=== PATIENT | male | born 1990 | race African-American/Black ===

== ENCOUNTER 2021-11-27 11:53 | Emergency (ER) | payer MEDICAID, OTHER ==
[~2021-11-27] VITALS: Ht 177.8 cm; Wt 79.4 kg
[2021-11-27] MEDS ORDERED: MORPHINE SULFATE 4 MG/ML SYR/VIAL IV ONE (12:15)
[2021-11-27] MEDS ORDERED: SODIUM CHLORIDE 0.9% 1,000 ML IVB ONE (12:15)
[2021-11-27] MEDS ORDERED: PROCHLORPERAZINE EDISYLATE 5 MG/ML 2ML VIAL IV ONE (12:15)
[2021-11-27] MEDS ORDERED: PANTOPRAZOLE 40 MG/10 ML VIAL INJ IV ONE (12:15)
[2021-11-27 13:31] LABS: Basophils # (auto) 0.1 10 ^3/uL (0-0.2); Basophils % (auto) 0.9 % (0.0-2.0); Eosinophils # (auto) 0.1 10 ^3/uL (0-0.8); Eosinophils % (auto) 1.4 % (0.0-7.0); Hematocrit 44.9 % (41.0-53.0); Hemoglobin 14.9 g/dL (13.5-17.5); Lymphocytes # (auto) 0.9 10 ^3/uL (0.4-5.4); Lymphocytes % (auto) 13.7 % (10.0-50.0); Mean Corpuscular Hemoglobin 27.6 pg (28.0-32.0); Mean Corpuscular Hgb Conc. 33.2 g/dL (32.0-36.0); Mean Corpuscular Volume 83.1 fL (80.0-100.0); Monocytes # (auto) 0.8 10 ^3/uL (0-1.3); Monocytes % (auto) 11.2 % (0.0-12.0); Neutrophils % (auto) 72.8 % (37.0-80.0); Nucleated Red Blood Cells % 0.1 %; Red Cell Distribution Width 12.9 % (11.8-14.3); White Blood Cell 6.9 10^3/uL (4.4-10.8)
[2021-11-27 13:33] LABS: Albumin 3.5 g/dL (3.4-5.0); Calcium 8.4 mg/dL (8.5-10.1)
[2021-11-27 13:35] LABS: BUN/Creatinine Ratio 20.5
[2021-11-27 13:38] LABS: Bilirubin, Total 1.2 mg/dL (0.2-1.0)
[2021-11-27 13:51] LABS: Potassium 2.8 mmol/L (3.5-5.1)
[2021-11-27] MEDS ORDERED: POTASSIUM CHL 20 Meq TABLET PO ONE (14:00)
[2021-11-27 15:00] VITALS: BP 124/84
== END 2021-11-27 15:36 | disposition home or self-care (01) ==
LOC: EDBD 11:53 → ER 11:53 → EDUNIT# 11:53 → ER 15:36
DX: F12.188 Cannabis abuse with other cannabis-induced disorder (principal); F15.10 Other stimulant abuse, uncomplicated; F17.210 Nicotine dependence, cigarettes, uncomplicated
CPT/HCPCS: 36415; 80053; 82150; 83690; 85025; 96361; 96374; 96375; 99284; C9113; J0780; J7030

== ENCOUNTER 2024-05-14 20:57 | Emergency (ER) | payer MEDICAID ==
[~2024-05-14] VITALS: Ht 177.8 cm; Wt 79.3 kg
[2024-05-14 21:10] VITALS: BP 112/73; PULSE 100; RESP 18; TEMP 98.7; O2SAT 97
[2024-05-14] MEDS ORDERED: AUG875T PO (22:36)
== END 2024-05-14 22:35 | disposition home or self-care (01) ==
LOC: ER 20:57
DX: L03.113 Cellulitis of right upper limb (principal); F17.210 Nicotine dependence, cigarettes, uncomplicated; F12.90 Cannabis use, unspecified, uncomplicated; F15.90 Other stimulant use, unspecified, uncomplicated